=== PATIENT | female | born 1950 | race Caucasian/White ===

== ENCOUNTER → 2016-07-27 | Outpatient (CLI) | payer BC ==
[2016-07-27 07:29] LABS: LYMPHOCYTES % (AUTO) 37.9 % (10-50)
[2016-07-27 07:32] LABS: BASOPHILS # (AUTO) 0.07 10*3/UL; BASOPHILS % (AUTO) 0.9 % (0-1); EOSINOPHILS % (AUTO) 0.7 % (0-8); HEMATOCRIT 45.8 % (37.0-47.0); HEMOGLOBIN 15.5 g/dL (12.0-16.0); IMM GRAN % (AUTO) 0.2 % (0-5); IMM GRAN# (AUTO) 0.02 10*3/UL; LYMPHOCYTES # (AUTO) 3.07 10*3/uL; MEAN CORPUSCULAR HEMOGLOBIN 28.9 PG (27-31); MEAN CORPUSCULAR HGB CONC 33.8 g/dL (33-37); MEAN PLATELET VOLUME 11.1 FL (7.4-12.2); MONOCYTES # (AUTO) 0.39 10*3/UL (0.3-0.8); MONOCYTES % (AUTO) 4.8 % (5-15); NEUTROPHILS # (AUTO) 4.49 10*3/UL; NEUTROPHILS % (AUTO) 55.5 % (50-80); RDW COEFFICIENT OF VARIATION 13.6 % (11.5-14.5); RED BLOOD COUNT 5.36 10^6/uL (4.20-5.40)
[2016-07-27 07:34] LABS: PLATELET MORPHOLOGY COMMENT NORMAL MORPHOLOGY (NORM)
[2016-07-27 07:44] LABS: HEMOGLOBIN A1C 5.85 % (4.2-6.0); MEAN BLOOD GLUCOSE (CALC) 108.805 mg/dL
[2016-07-27 08:24] LABS: FREE T4 (FREE THYROXINE) 1.22 ng/dL (0.93-1.71)
[2016-07-27 08:29] LABS: ERYTHROCYTE SEDIMENTATION RATE 7 MM/HR (0-20)
[2016-07-27 08:54] LABS: BLOOD UREA NITROGEN 17 mg/dL (7-22); BUN/CREATININE RATIO 18.88 (6-20); CALCIUM 9.8 mg/dL (8.7-10.7); CHLORIDE 102 meq/L (98-112); CREATININE 0.9 mg/dL (0.50-1.20); EST GLOMERULAR FILTRATION > 60 (>60 ml/min/1.73m(2)); GLUCOSE 109 mg/dL (78-110); HDL CHOLESTEROL 37 mg/dL (40-150); POTASSIUM 4.4 meq/L (3.8-5.2); SODIUM 139 meq/L (135-145); TRIGLYCERIDES 230 mg/dL (44-200)
== END ==
LOC: LAB 07:08
PROVIDERS: ATTEND Internal Medicine
DX: E11.9 Type 2 diabetes mellitus without complications (principal); E78.5 Hyperlipidemia, unspecified; L65.9 Nonscarring hair loss, unspecified; L85.3 Xerosis cutis; R22.1 Localized swelling, mass and lump, neck; R63.4 Abnormal weight loss
CPT/HCPCS: 36415; 80048; 80061; 83036; 84439; 84443; 85025; 85652

== ENCOUNTER → 2016-07-29 | Outpatient (CLI) | payer BC ==
--- NOTE | 2016-07-29 14:22 | DI ---
THYROID ULTRASOUND, 07/29/2016 10:33 AM Clinical History: Nodule of the neck. Previous Exam: None. Scans are performed through both lobes of the thyroid gland in multiple projections with the high res olution linear array probe. Color Doppler ultrasound is also performed. Both lobes of the thyroid gland are of normal size. The right and left lobes measure 12 x 12 x 48 mm, and 12 x 10 x 42 mm, in the AP, transverse, and longitudinal dimensions, respectively. At the inferi or margin of the right lobe of the thyroid gland and extending obliquely into the isthmus a solid nod ule is identified. It is inhomogeneous and internally hypovascular, but the perimeter of the lesion h as numerous vessels surrounding the lesion. The lesion measures approximately 12 x 17 x 19 mm. Bilate rally, there are small hyperplastic nodules in the range of 2-3 mm in diameter as well as multiple si milar sized hypoechoic lesions that are consistent with benign follicular type cysts. Readin. There is an inhomogeneous slightly hypoechoic 12 x 17 x 19 mm solid lesion that extends from the lower pole of the right lobe of thyroid gland and then courses medially into the right side of the is thmus. Surgical consultation with fine needle aspiration is recommended for further evaluation. 2. The left thyroid lobe and left side of the isthmus are normal. 3. Both lobes have multiple small hyperplastic nodules as well as small benign follicular cysts.
== END ==
LOC: US 10:30
PROVIDERS: ATTEND Internal Medicine
DX: R22.1 Localized swelling, mass and lump, neck (principal)
CPT/HCPCS: 76536

== ENCOUNTER → 2016-08-17 | Outpatient (CLI) | payer BC ==
--- NOTE | 2016-08-17 12:09 | DI ---
US FINE NDL ASP W/IMAGING GUID,08/17/2016 7:53 AM: Clinical History: Thyroid nodule. Previous Exam: July 29, 2016 Procedure: Risks, benefits and alternatives were explained to the patient and informed written consen t obtained. The anterior neck was prepped and draped in usual sterile fashion and 1% lidocaine used for local ane sthesia. Under sonographic guidance, 2 total passes were made through the thyroid mass within the isthmus. Images obtained after the procedure demonstrate no evidence of hematoma. The patient tolerated the procedure well and was sent home in good condition. Findings: 2 images are obtained during both thyroid biopsies. Impression: Successful thyroid biopsy. Pathology pending.
== END ==
LOC: US 07:50
PROVIDERS: ATTEND Surgery
DX: R22.1 Localized swelling, mass and lump, neck (principal)
CPT/HCPCS: 10022

== ENCOUNTER 2017-04-20 07:46 | Inpatient (IN) ==
[2017-04-20] MEDS ORDERED: Sodium Chloride 0.9% 1,000 ML PRIMARY IV ONE (08:12)
[2017-04-20] MEDS ORDERED: NORMAL SALINE 10 ML SYRINGE FLUSH IVP PRN ×2 (08:12→10:38)
[2017-04-20] MEDS ORDERED: IPRATROPIUM/ALBUTEROL SULFATE 3 ML NEB NEB ONE (08:12)
[2017-04-20 08:31] LABS: BILIRUBIN,URINE NEGATIVE (NEG); CLARITY,URINE CLEAR (CLEAR); COLOR,URINE YELLOW (Y); GLUCOSE, URINE (UA) NEGATIVE (NEG); NITRATE,URINE NEGATIVE (NEG); OCCULT BLOOD,URINE Trace-intact (NEG); PROTEIN,URINE NEGATIVE (NEG); UROBILINOGEN,URINE 0.2 EU/dL (0.2)
[2017-04-20 08:33] LABS: RBC,URINE 0 /hpf; SQUAMOUS EPITHELIAL CELL,UR RARE; URINE SAMPLE TYPE CATH SPECIMEN; WBC,URINE 0
[2017-04-20 08:38] LABS: VENOUS PH 7.48 (7.32-7.42)
[2017-04-20 08:42] LABS: BLOOD UREA NITROGEN 20 mg/dL (7-22); MAGNESIUM 1.3 mg/dL (1.6-2.4); SERUM ALBUMIN 4.1 g/dL (3.5-4.8)
[2017-04-20 08:45] LABS: BASOPHILS % (AUTO) 0.2 % (0-1); EOSINOPHILS # (AUTO) 0.01 10*3/UL; EOSINOPHILS % (AUTO) 0.1 % (0-8); Hematocrit [HCT] 43.3 % (37.0-47.0); Hemoglobin [HGB] 14.5 g/dL (12.0-16.0); LYMPHOCYTES # (AUTO) 1.42 10*3/uL; MEAN CORPUSCULAR HEMOGLOBIN 27.9 PG (27-31); MEAN CORPUSCULAR HGB CONC 33.5 g/dL (33-37); MEAN CORPUSCULAR VOLUME 83.4 FL (81-99); MEAN PLATELET VOLUME 10.5 FL (7.4-12.2); MONOCYTES % (AUTO) 5.2 % (5-15); NEUTROPHILS # (AUTO) 12.96 10*3/UL; NEUTROPHILS % (AUTO) 84.9 % (50-80); RED BLOOD COUNT 5.19 10^6/uL (4.20-5.40)
[2017-04-20 08:46] LABS: BASOPHILS # (AUTO) 0.03 10*3/UL; PLATELET MORPHOLOGY COMMENT NORMAL MORPHOLOGY (NORM); RBC MORPHOLOGY COMMENT NORMAL MORPHOLOGY (NORM); WBC MORPHOLOGY COMMENT NORMAL MORPHOLOGY (NORM)
[2017-04-20] MEDS ORDERED: Ertapenem Inj 1 GM in Sodium Chloride 0.9% 100 ML IV ONE (09:01)
[2017-04-20] MEDS ORDERED: ACETAMINOPHEN 500 MG TABLET PO ONE (09:02)
--- NOTE | 2017-04-20 09:14 | PDOC ---
General Adult HPI - General Chief Complaint: Dyspnea Stated Complaint: ill, dyspnea Date Seen by Provider: 04/20/17 Time Seen by Provider: 07:50 Source: POSITIVE: Patient, Old records Exam Limitations: POSITIVE: No limitations Nurse's Notes Reviewed & Considered: Yes - History of Present Illness Initial Comment: The patient is a 66-year-old female. She presents to the emergency room complaining of a two-week history of cough. She was seen in the emergency room on April 15 for this complaint; at that time chest x-ray was normal. Please refer to previously dictated emergency room note. She has a history of COPD. Patient was treated with beta agonist nebulizers and was started on Levaquin, 500 mg daily. She returns to the emergency room today complaining of persistent cough and for the last day or so she's had a fever and chills. She states she feels more short of breath. She states she has a history of congestive heart failure. Have you received a tetanus shot in the past 10 years?: Yes Body Location Affected: REPORTS: Chest Timing: REPORTS: Gradual, Getting Worse Duration: >1 week Severity: Moderate Quality: REPORTS: Other (No pain except some circumferential headache) Context: REPORTS: Coughing Modifying Factors: improves with: Coughing Similar Symptoms Previously: Yes Recent Care Received: REPORTS: Recently Seen, Treated by MD (As above) Any Prior Injuries Related to Current Complaint?: No - Patient Home Medications Home Medications: Home Medications Aspirin 81 mg PO DAILY tab 02/17/15 Cholecalciferol (Vitamin D3) [Vitamin D-3] 1 tab PO DAILY tab 02/17/15 Cinnamon Bark [Cinnamon] 500 mg PO BID #0 cap 01/28/16 buspirone 15 mg tablet 15 mg PO BID #0 tab 02/21/17 trazodone 100 mg tablet 100 mg PO QHS #135 tab 02/21/17 omeprazole 20 mg capsule,delayed release 20 mg PO BID #180 cap 03/11/17 Albuterol Neb Soln 0.083% 2.5 mg IH Q4H PRN #25 ml 04/15/17 Levofloxacin [Levaquin] 500 mg PO DAILY #14 tab 04/15/17 - Patient Allergies Allergies/Adverse Reactions: Allergies 3 Allergy/AdvReac Type Severity Reaction Status Date / Time red dye [Red Dye] Allergy Severe SWELLING Verified 04/20/17 07:50 OF TONGUE [id number]-[id number] Reductase AdvReac MUSCLE Verified 04/20/17 07:50 Inhibitor ACHES GENERIC PROZAC AdvReac UNSURE Uncoded 04/20/17 07:50 Past Medical History - heen HEENT History: Denies History Cardiovascular History: Hypertension, CAD, Hyperlipidemia Respiratory History: COPD, Home Oxygen Use Gastrointestinal History: Denies History Genitourinary History: Denies History Endocrine History: Other (please comment) Additional Endocrine History: HX TYPE II DIABETES, SYMPTOMS SUBSIDED WITH WEIGHT LOSS Musculoskeletal History: Denies History Prosthesis or Implant: No Neurological History: Denies History Blood Disorders: Denies History Psychiatric History: Depression History of Sexually Transmitted Diseases: No Female Reproductive History: Hysterectomy Cancer History: Denies History In Past Year Been Physically Harmed or Verbally Threatened: No History of MDRO: No History of Other Communicable Diseases: No Tobacco Use: Former Smoker Alcohol Use: None In the Past 12 Months, Have Used or Abuse Any Substance: None Previous Surgical History: Yes Type / Date of Surgery: PARTIAL HYSTERECTOMY. THYROID BIOPSY Anesthesia Reactions: No Malignant Hyperthermia: No Significant Family History: No pertinent family hx Past Medical History Reviewed: Reviewed - No Changes ROS - Limitations ROS Limitations: No Limitations Constitution: REPORTS: Chills, Fever Cardiovascular: REPORTS: Denies Cardiac Symptoms Respiratory: REPORTS: Cough Productive (Of mucoid sputum), Shortness Of Breath Neurological: REPORTS: Denies Neuro Symptoms Gastrointestinal: REPORTS: Denies GI Symptoms Endocrine: REPORTS: Denies Symptoms Musculoskeletal: REPORTS: Muscle Aches Genitourinary: REPORTS: Denies Symptoms Eyes: REPORTS: Denies Symptoms ENT: REPORTS: Denies Symptoms Skin: REPORTS: Denies Skin Symptoms Lympathic: REPORTS: Denies Lympathic Symptoms Immunologic: POSITIVE: Denies Symptoms Psychiatric: POSITIVE: Denies Psych Symptoms General Adult Exam - General Appearance General Appearance: POSITIVE: Alert, Cooperative, No Acute Distress, No Evidence of Trauma - HEENT HEENT: POSITIVE: Head Inspection Nml, Eyes Inspection Nml, Ears Inspection Nml, Nose Inspection Nml, Oral/Dental Inspect. Nml, Pharynx Inspect. Nml, PERRL, EOMI - Pupils Pupil Size: 3 mm: Bilateral (PERRLA) - Neck Neck: POSITIVE: Normal Inspection, Thyroid Normal - Respiratory Respiratory: POSITIVE: No Respiratory Distress, Rhonchi (Scattered rhonchi). NEGATIVE: Breath Sounds Normal - Cardiovascular Cardiovascular: POSITIVE: Regular Rate & Rhythm, No Murmur, No Gallop, PMI Normal Peripheral Pulses: Radial (R): 2+, Radial (L): 2+ - Abdomen Abdomen: Soft: (All Quadrants), Normal Bowel Sounds: (All Quadrants), Denies Tenderness: (All Quadrants), No Splenomegaly: (All Quadrants), No Hepatomegaly: (All Quadrants), No Guarding: (All Quadrants), No Rebound: (All Quadrants), No Palpable Pulse: (All Quadrants), No Palpabale Mass: (All Quadrants), No Distention: (All Quadrants), No Rigidity: (All Quadrants) - Back Back: POSITIVE: Normal Inspection - Skin Skin: POSITIVE: Normal Color, Warm, Dry, No Rash - Extremities Extremity: Non-Tender: (All Extremities), Normal ROM: (All Extremities), Normal Inspection: (All Extremities) - Neurological / Psychological Neurological: POSITIVE: Oriented X3, game producer Normal As Tested, Motor Normal, Sensation Normal, 5, 6 General Adult Progress - Results Reviewed by me Xrays/CTs/US Reviewed by me: Yes Discussed with Radiologist: No Radiology Findings: No definite infiltrates or other abnormalities seen by me; radiologist interpretation pending Lab Results Reviewed by Me: Yes (urinalysis normal, lactate 0.8, VBG normal, blood cultures drawn) CBC and BMP: 04/20/17 08:26 04/20/17 08:26 - Patient's Progress Pain Medication Addressed: POSITIVE: Yes (Tylenol given for fever and myalgia) School/Work Release Addressed: POSITIVE: Not Applicable Re-Examine Time: 09:00 Re-Examine Comment: Condition unchanged. Patient maintains saturations around 94% on 4 L. 1 g of Invanz given after blood cultures drawn. Case discussed with hospitalist information systems audit manager and patient admitted to Dr. Gunn. Status: POSITIVE: Unchanged, Re-Examined Antibiotics Given: Yes (Invanz, 1 g IV) Quality Measure Initiative: CAP: POSITIVE: SaO2, VS, Antibiotic(s), BC, CXR or CT - Consult Consult (If Yes, Name of Consulting MD & Time Called): Yes (Dr. Gunn, hospitalist, [id number]) Consulting MD will see pt:: POSITIVE: [facility] [place] Admit Counseled: POSITIVE: Patient, Family, RE: Lab Results, RE: Radiology Results, RE : DX, RE: Need for F/U Patient Care Time - Estimated PCT Patient Care Time (In Minutes): 50 Vital Signs - Recent Vital Signs Vital Signs: Vital Signs (Last 8 hours) Temp Pulse Pulse Resp BP Pulse Ox 04/20/17 08:31 110 H 22 100 04/20/17 08:30 112 H 24 95 04/20/17 08:01 101.1 F H 136 H 20 125/85 88 - VS Reviewed Vital Signs Reviewed: Yes Discharge Clinical Impression: Chronic obstructive lung disease, Cough, COPD exacerbation, Fever and chills Discharge Disposition: Admit to Inpatient Condition: Fair Follow Up With: GREGORY FLORES [Primary Care Provider] - Date Decision to Admit to Inpatient: 04/20/17 Time Decision to Admit to Inpatient: 08:50
--- NOTE | 2017-04-20 09:36 | DI ---
PA /LATERAL CHEST X-RAY, 04/20/2017 8:12 AM : Clinical History: Cough and fever Previous Exam: April 15, 2017 There is no acute soft tissue or bony abnormality. Heart size is normal. Lungs are clear. Mediastinal structures are normal. There are no pulmonary nodules. IMPRESSION: Normal chest x-ray.
[2017-04-20] MEDS ORDERED: PNEUMOCOCCAL 23 VACCINE 25 MCG/0.5 ML VIAL IM ONE (10:15)
[2017-04-20] MEDS ORDERED: LIDOCAINE W/ SODIUM BICARB 0.5 ML SYR SUBD PRN (10:38)
--- NOTE | 2017-04-20 11:01 | PDOC ---
HPI - History of Present Illness Date of Service: 04/20/17 Time of Service: 11:40 Chief Complaint: Cough, fever, shortness of breath History of Present Illness: This is a 66 years old female with medical history significant for history of COPD started on oxygen few days ago, history of hypertension on no medication, history of diabetes on no medication and history of sleep apnea who is been feeling sick she said for the last 3 weeks started with cough and runny nose not feeling well and then felt some improvement however on the she felt worse so she came into the ER on Tuesday the and she was given antibiotics and nebulizer and discharged home. Over the weekend she continued to feel not well, feeling cold, decreased appetite, shortness of breath cough with phlegm production described as yellow and because of all the symptoms she came into the ER. When she came into the ER she was tachycardic, febrile at 101 white count was elevated she was given antibiotic after blood culture and was admitted. She is feeling as slightly better than when she came in but she still feel tired Past Medical History Medical History: 1. COPD no oxygen until last Tuesday when she was told to be on oxygen she been on 2 L a minute. 2. GERD. 3. History of hypertension on no medication but since she lost weight she doesn't need blood pressure medications. 4. Sleep apnea. 5. History of leaky valve, echo done in 2012 showed aortic regurgitation. 6. Diabetes on no medications. 7. Anxiety depression. 8. Hyperlipidemia on no medications Surgical History: 1. Hysterectomy Pertinent Family History: Mother had coronary artery disease. Father had coronary artery disease Tobacco Use: Former Smoker In the Past 12 Months, Have Used or Abuse Any of the Following Substance: None Alcohol Use: Rarely Medication / Allergies Home Medications: Home Medications Medication Instructions Recorded Confirmed Type Aspirin 81 mg PO DAILY tab 02/17/15 04/20/17 History Cholecalciferol (Vitamin D3) 1 tab PO DAILY tab 02/17/15 04/20/17 History [Vitamin D-3] Cinnamon Bark [Cinnamon] 500 mg PO BID #0 cap 01/28/16 04/20/17 Rx buspirone 15 mg tablet 15 mg PO BID #0 tab 02/21/17 04/20/17 History trazodone 100 mg tablet 100 mg PO QHS #135 tab 02/21/17 04/20/17 History omeprazole 20 mg capsule,delayed 20 mg PO BID #180 cap 03/11/17 04/20/17 Rx release Albuterol Neb Soln 0.083% 2.5 mg IH Q4H PRN #25 ml 04/15/17 04/20/17 Rx Levofloxacin [Levaquin] 500 mg PO DAILY #14 tab 04/15/17 04/20/17 Rx Allergies/Adverse Reactions: Allergies 3 Allergy/AdvReac Type Severity Reaction Status Date / Time red dye [Red Dye] Allergy Severe SWELLING Verified 04/20/17 07:50 OF TONGUE Yldyswn-Axu-Pgk Reductase AdvReac MUSCLE Verified 04/20/17 07:50 Inhibitor ACHES GENERIC PROZAC AdvReac UNSURE Uncoded 04/20/17 07:50 Review of Systems - Review of Systems All Systems: Reviewed & No Additional Complaints Except as Stated Exam - Vitals Vital Signs: Vital Signs Temperature 99.8 F Temperature Source Oral Pulse Rate [Apical] 101 Pulse Rate 112 Respiratory Rate 20 Blood Pressure 141/63 Pulse Ox 93 Oxygen Flow Rate 2 Oxygen Delivery Method Nasal Cannula Height 5 ft 3 in Weight 203 lb 9.6 oz - General General Appearance: Cooperative, Obese Additional General Exam Details: Looks tired - Head Head Exam: Normal Inspection, Atraumatic - Eye Eye Exam: POSITIVE: Normal Appearance - ENT ENT Exam: POSITIVE: Normal Exam - Respiratory Additional Respiratory Exam Details: Decreased air entry otherwise clear - Cardiovascular Cardiovascular Exam: POSITIVE: RRR, Systolic Murmur - GI/Abdominal GI/Abdominal Exam: POSITIVE: Normal Bowel Sounds, Non Tender, Non Distended, Soft, No Organomegaly - Rectal Rectal Exam: POSITIVE: Deferred - External Exam: POSITIVE: Deferred - Extremities Extremities Exam: POSITIVE: Normal Inspection - Back Back Exam: POSITIVE: Normal Inspection - Neurological Neurological Exam: POSITIVE: Alert, Oriented x 3, CN II-XII Intact, Speech Intact / Clear, Moves All Extremities Equally - Psychiatric Psychiatric Exam: POSITIVE: Normal Affect Results - Labs CBC and BMP: 04/20/17 08:26 04/20/17 08:26 Assessment and Plan - Patient Problems (1) Sepsis Current Visit: Yes Status: Acute Comment: The fever, elevated white count and tachycardia that she had when she came in point to sepsis. The site of infection is likely the lungs. The chest x-ray that she had was negative so will do a CT of the chest to look for pneumonia. I think will treat with antibiotics for now until we have culture result. Tests for flu were negative. contineu IV fluids. Code(s): A41.9 - Sepsis, unspecified organism (2) Anxiety Current Visit: Yes Status: Acute Comment: Same medications Code(s): F41.9 - Anxiety disorder, unspecified (3) GERD (gastroesophageal reflux disease) Current Visit: No Status: Chronic Onset Date: 01/28/12 Comment: Same med Code(s): K21.9 - Gastro-esophageal reflux disease without esophagitis (4) DVT prophylaxis Current Visit: Yes Status: Acute Comment: will put her on lovenox
[2017-04-20] MEDS ORDERED: Magnesium Sulfate 2gm (Premix) 2 GM/50 ML BAG IV ONE (11:02)
[2017-04-20] MEDS ORDERED: cefTRIAXone Inj 2 GM in Sodium Chloride 0.9% 100 ML IV SCH (12:00)
[2017-04-20] MEDS: Sodium Chloride 0.9% 1,000 ML IV SCH ×3 (12:59→23:24)
[2017-04-20] MEDS: IPRATROPIUM/ALBUTEROL SULFATE 3 ML NEB NEB SCH ×2 (13:20→19:10)
[2017-04-20] MEDS: cefTRIAXone Inj 2 GM in Sodium Chloride 0.9% 100 ML IV SCH (15:08)
[2017-04-20] MEDS ORDERED: Sodium Chloride 0.9% 1,000 ML ONE (15:49)
--- NOTE | 2017-04-20 16:34 | DI ---
CT Chest WO Contrast,04/20/2017 10:46 AM: Clinical History: Cough and fever Previous Exam: September 16, 2008 Findings: Multiple helically acquired CT images are obtained through the lungs without contrast, and demonstrat e early infiltrates throughout and alveolar distribution worse on the right than the left. The larges t infiltrate is within the right upper lobe just above the right major fissure. Coronary artery calcifications are also noted. There is no lymphadenopathy. The upper abdomen is unremarkable. Impression: Early bilateral infiltrates most consistent with early pneumonia. Recommend followup imaging after tr eatment to document resolution as a neoplastic process cannot be completely excluded.
[2017-04-20] MEDS: ACETAMINOPHEN 325 MG TABLET PO PRN (16:43)
[2017-04-20] MEDS: traZODone Tab 50 MG TAB PO SCH (20:44)
[2017-04-20] MEDS: OMEPRAZOLE 20 MG CAPSULE PO SCH (20:44)
[2017-04-20] MEDS: busPIRone HCL 5 MG TABLET PO SCH (20:44)
[2017-04-21] MEDS: IPRATROPIUM/ALBUTEROL SULFATE 3 ML NEB NEB SCH ×4 (00:03→18:08)
[2017-04-21] MEDS: Sodium Chloride 0.9% 1,000 ML IV SCH ×3 (03:14→16:34)
[2017-04-21 07:35] LABS: Hematocrit [HCT] 36.6 % (37.0-47.0); Hemoglobin [HGB] 12.3 g/dL (12.0-16.0); MEAN CORPUSCULAR HEMOGLOBIN 29.1 PG (27-31); MEAN CORPUSCULAR VOLUME 87 FL (81-99); RED BLOOD COUNT 4.21 10^6/uL (4.20-5.40)
[2017-04-21 07:36] LABS: BASOPHILS % (AUTO) 0.4 % (0-1); MEAN CORPUSCULAR HGB CONC 33.5 g/dL (33-37); MEAN PLATELET VOLUME 8.4 FL (7.4-12.2); NEUTROPHILS # (AUTO) 8.46 10*3/UL; NEUTROPHILS % (AUTO) 71.6 % (50-80)
[2017-04-21 07:37] LABS: BASOPHILS # (AUTO) 0.05 10*3/UL; EOSINOPHILS # (AUTO) 0.12 10*3/UL; MONOCYTES # (AUTO) 0.59 10*3/UL (0.3-0.8); PLATELET MORPHOLOGY COMMENT NORMAL MORPHOLOGY (NORM); RBC MORPHOLOGY COMMENT NORMAL MORPHOLOGY (NORM); WBC MORPHOLOGY COMMENT NORMAL MORPHOLOGY (NORM)
--- NOTE | 2017-04-21 08:01 | PDOC(PROG) ---
Date and Time of Service: 04/21/2017 at 7:58 AM Interval History: Subjective Patient feels a little bit better compared to yesterday. Her breathing is somewhat better. Still coughing but nothing is coming out. No other symptoms. Objective : Data - Labs CBC and BMP: 04/21/17 07:00 04/20/17 08:26 Objective : Exam - General General Appearance: No Acute Distress, Cooperative - Head Head Exam: Normal Inspection - Eye Eye Exam: Normal Appearance - ENT ENT Exam: Normal Exam - Neck Neck Exam: Normal Inspection - Respiratory Additional Respiratory Exam Details: Decreased air entry otherwise clear - Cardiovascular Cardiovascular Exam: RRR, Systolic Murmur - GI/Abdominal GI/Abdominal Exam: Normal Bowel Sounds, Non Tender, Non Distended, Soft - Rectal Rectal Exam: Deferred - External Exam: Deferred Exam: Deferred - Extremities Extremities Exam: Normal Inspection - Back Back Exam: Normal Inspection - Neurological Neurological Exam: Alert, Oriented x 3, CN II-XII Intact, Speech Intact / Clear , Moves All Extremities Equally - Psychiatric Psychiatric Exam: Normal Affect - Integumentary Integumentary Exam: Normal Color Assessment and Plan - Patient Problems (1) Sepsis Current Visit: Yes Status: Acute Comment: Sepsis secondary to pneumonia seems to be resolving. The CAT scan did show evidence of early pneumonia. I think we'll continue current antibiotic with the Rocephin and Zithromax. Her temperature seemed to be normalized. Her heart rate is within the normal range now. We'll cut back on her fluid. Need to stay at least another night in the hospital Code(s): A41.9 - Sepsis, unspecified organism (2) Anxiety Current Visit: Yes Status: Acute Comment: Same medications Code(s): F41.9 - Anxiety disorder, unspecified (3) GERD (gastroesophageal reflux disease) Current Visit: No Status: Chronic Onset Date: 01/28/12 Comment: Same med Code(s): K21.9 - Gastro-esophageal reflux disease without esophagitis (4) DVT prophylaxis Current Visit: Yes Status: Acute Comment: She is on Lovenox (5) Pneumonia Current Visit: Yes Status: Acute Comment: CAT scan did show evidence of early pneumonia continue current antibiotics. Code(s): J18.9 - Pneumonia, unspecified organism
[2017-04-21] MEDS: ASPIRIN 81 MG (BABY) CHEWABLE TABLET PO SCH (08:33)
[2017-04-21] MEDS: OMEPRAZOLE 20 MG CAPSULE PO SCH ×2 (08:33→20:18)
[2017-04-21] MEDS: busPIRone HCL 5 MG TABLET PO SCH ×2 (08:34→20:18)
[2017-04-21] MEDS: ENOXAPARIN SODIUM 40 MG/0.4 ML SYRINGE SUBCUT SCH (08:34)
[2017-04-21] MEDS: CHOLECALCIFEROL 1000 IU TABLET PO SCH (08:34)
[2017-04-21] MEDS: ACETAMINOPHEN 325 MG TABLET PO PRN (13:21)
[2017-04-21] MEDS: cefTRIAXone Inj 2 GM in Sodium Chloride 0.9% 100 ML IV SCH (16:33)
[2017-04-21] MEDS: traZODone Tab 50 MG TAB PO SCH (20:18)
[2017-04-22] MEDS: IPRATROPIUM/ALBUTEROL SULFATE 3 ML NEB NEB SCH ×4 (00:57→18:46)
[2017-04-22] MEDS: ACETAMINOPHEN 325 MG TABLET PO PRN ×2 (04:26→18:10)
[2017-04-22] MEDS: Sodium Chloride 0.9% 1,000 ML IV SCH (04:29)
[2017-04-22 06:30] LABS: Hematocrit [HCT] 36.2 % (37.0-47.0); Hemoglobin [HGB] 12.2 g/dL (12.0-16.0); MEAN CORPUSCULAR HEMOGLOBIN 29.3 PG (27-31); MEAN CORPUSCULAR HGB CONC 33.8 g/dL (33-37); MEAN CORPUSCULAR VOLUME 87 FL (81-99); RED BLOOD COUNT 4.17 10^6/uL (4.20-5.40)
[2017-04-22 06:31] LABS: BASOPHILS # (AUTO) 0.04 10*3/UL; BASOPHILS % (AUTO) 0.5 % (0-1); EOSINOPHILS # (AUTO) 0.17 10*3/UL; EOSINOPHILS % (AUTO) 2.2 % (0-8); LYMPHOCYTES # (AUTO) 1.91 10*3/uL; MEAN PLATELET VOLUME 8.2 FL (7.4-12.2); MONOCYTES # (AUTO) 0.48 10*3/UL (0.3-0.8); MONOCYTES % (AUTO) 6.1 % (5-15); NEUTROPHILS % (AUTO) 66.7 % (50-80); PLATELET MORPHOLOGY COMMENT NORMAL MORPHOLOGY (NORM); RBC MORPHOLOGY COMMENT NORMAL MORPHOLOGY (NORM); WBC MORPHOLOGY COMMENT NORMAL MORPHOLOGY (NORM)
[2017-04-22 06:41] LABS: BLOOD UREA NITROGEN 11 mg/dL (7-22); BUN/CREATININE RATIO 15.71 (6-20); MAGNESIUM 1.5 mg/dL (1.6-2.4); SERUM ALBUMIN 3.1 g/dL (3.5-4.8)
--- NOTE | 2017-04-22 07:59 | PDOC(PROG) ---
Date and Time of Service: 04/22/2017 7:55 AM Interval History: Subjective She still not feeling well she said. Although there is some improvement still compared to when she came in. She reports some pain in the chest in a small area when she takes a deep breath. its Located on the left side. More the upper left side. Objective : Data - Labs CBC and BMP: 04/22/17 06:18 04/22/17 06:18 Objective : Exam - General General Appearance: No Acute Distress, Cooperative - Head Head Exam: Normal Inspection - Eye Eye Exam: Normal Appearance - ENT ENT Exam: Normal Exam - Neck Neck Exam: Normal Inspection - Respiratory Additional Respiratory Exam Details: Decreased air entry minimal wheeze heard. - Cardiovascular Cardiovascular Exam: RRR - GI/Abdominal GI/Abdominal Exam: Normal Bowel Sounds, Non Tender, Non Distended, Soft, No Organomegaly - Rectal Rectal Exam: Deferred - External Exam: Deferred - Extremities Extremities Exam: Normal Inspection - Back Back Exam: Normal Inspection, Full ROM - Neurological Neurological Exam: Alert, Oriented x 3, CN II-XII Intact, Speech Intact / Clear , Moves All Extremities Equally - Psychiatric Psychiatric Exam: Normal Affect - Integumentary Integumentary Exam: Normal Color Assessment and Plan - Patient Problems (1) Sepsis Current Visit: Yes Status: Acute Comment: This is resolved this is secondary to the pneumonia. Continue antibiotics. Code(s): A41.9 - Sepsis, unspecified organism (2) Anxiety Current Visit: Yes Status: Acute Comment: Same med Code(s): F41.9 - Anxiety disorder, unspecified (3) GERD (gastroesophageal reflux disease) Current Visit: No Status: Chronic Onset Date: 01/28/12 Comment: Continue omeprazole Code(s): K21.9 - Gastro-esophageal reflux disease without esophagitis (4) DVT prophylaxis Current Visit: Yes Status: Acute Comment: She is on Lovenox (5) Pneumonia Current Visit: Yes Status: Acute Comment: Continue current antibiotics she is still not feeling well. There is minimal wheeze I think I'll add some steroid as she has COPD and see whether that would help her symptoms. The pain that she has in the chest does not look her anginal but will do it an EKG. Will check also troponin. Code(s): J18.9 - Pneumonia, unspecified organism
--- NOTE | 2017-04-22 08:08 | EKG ---
[address] [address] Measurements Intervals [place] Rate: 75 P: 76 NV: 192 QRS: 34 QRSD: 84 T: 52 QT: 372 QTc: 401 Interpretive Statements SINUS RHYTHM Compared to ECG 04/15/2017 12:37:48 No significant changes Electronically Signed On 04-22-17 08:33:53 MST by Lloyd Terry MD [email or web address]
[2017-04-22] MEDS ORDERED: Magnesium Sulfate 2gm (Premix) 2 GM/50 ML BAG IV ONE (08:09)
[2017-04-22] MEDS: predniSONE Tab 20 MG TAB PO SCH (08:32)
[2017-04-22] MEDS: CHOLECALCIFEROL 1000 IU TABLET PO SCH (08:32)
[2017-04-22] MEDS: OMEPRAZOLE 20 MG CAPSULE PO SCH ×2 (08:33→20:32)
[2017-04-22] MEDS: ENOXAPARIN SODIUM 40 MG/0.4 ML SYRINGE SUBCUT SCH (08:33)
[2017-04-22] MEDS: MAGNESIUM OXIDE 400 MG TABLET PO SCH (08:33)
[2017-04-22] MEDS: ASPIRIN 81 MG (BABY) CHEWABLE TABLET PO SCH (08:33)
[2017-04-22] MEDS: busPIRone HCL 5 MG TABLET PO SCH ×2 (08:33→20:33)
[2017-04-22] MEDS ORDERED: PNEUMOCOCCAL 23 VACCINE 25 MCG/0.5 ML VIAL IM ONE (14:00)
[2017-04-22] MEDS: cefTRIAXone Inj 2 GM in Sodium Chloride 0.9% 100 ML IV SCH (14:55)
[2017-04-22] MEDS: traZODone Tab 50 MG TAB PO SCH (20:33)
[2017-04-23] MEDS: IPRATROPIUM/ALBUTEROL SULFATE 3 ML NEB NEB SCH ×2 (00:49→06:14)
[2017-04-23 04:54] VITALS: TEMP 97.3
[2017-04-23 06:38] LABS: BLOOD UREA NITROGEN 14 mg/dL (7-22); MAGNESIUM 1.6 mg/dL (1.6-2.4)
[2017-04-23] MEDS: MAGNESIUM OXIDE 400 MG TABLET PO SCH (06:46)
[2017-04-23 08:02] VITALS: RESP 20
[2017-04-23] MEDS: ENOXAPARIN SODIUM 40 MG/0.4 ML SYRINGE SUBCUT SCH (08:16)
[2017-04-23] MEDS: OMEPRAZOLE 20 MG CAPSULE PO SCH (08:16)
[2017-04-23] MEDS: predniSONE Tab 20 MG TAB PO SCH (08:16)
[2017-04-23] MEDS: ASPIRIN 81 MG (BABY) CHEWABLE TABLET PO SCH (08:16)
[2017-04-23] MEDS: busPIRone HCL 5 MG TABLET PO SCH (08:16)
[2017-04-23] MEDS: CHOLECALCIFEROL 1000 IU TABLET PO SCH (08:17)
[2017-04-23 11:12] VITALS: BP 153/81; O2SAT 93
--- NOTE | 2017-04-23 11:17 | DCSUMMARY ---
Hospitalization Summary Hospital Course: Final Discharge Diagnosis: Current Visit Problems Problem Status Onset Code COPD exacerbation Acute J44.1 Chronic obstructive lung disease Acute J44.9 Cough Acute R05 Fever and chills Acute R50.9 Sepsis Acute A41.9 Anxiety Acute F41.9 DVT prophylaxis Acute Pneumonia Acute J18.9 Diagnostic Data, Laboratory Data, and Procedures of Signifigance: Laboratory Results 04/22/17 04/23/17 Range/Units 14:18 06:00 Sodium 142 (135-145) meq/L Potassium 3.9 (3.8-5.2) meq/L Chloride 107 (98-112) meq/L Carbon Dioxide 24 (23-33) meq/L Anion Gap 11 (5-20) BUN 14 (7-22) mg/dL Creatinine 0.7 (0.50-1.20) mg/dL Estimated GFR > 60 (>60 ml/min/1.73m(2)) BUN/Creatinine Ratio 20.00 (6-20) Glucose 83 (78-110) mg/dL Calculated Osmolality 293.0 H (267-292) mOsm/kg Calcium 9.3 (8.7-10.7) mg/dL Magnesium 1.6 (1.6-2.4) mg/dL Troponin I < 0.012 (< 0.040) ng/mL Vital Signs (24 hrs) Temp Pulse Pulse Resp BP BP Pulse Ox 04/23/17 11:10 97.3 F 65 20 153/81 93 04/23/17 11:09 94 04/23/17 11:00 93 04/23/17 08:01 97.3 F 73 20 133/72 92 04/23/17 07:00 92 04/23/17 06:15 60 16 04/23/17 06:14 60 16 95 04/23/17 04:53 97.3 F 72 18 134/70 93 04/23/17 04:42 90 04/23/17 02:54 92 04/23/17 00:54 97.5 F 67 20 121/64 93 04/23/17 00:50 61 16 96 04/23/17 00:49 56 L 16 96 04/22/17 22:38 93 04/22/17 21:00 95 04/22/17 20:52 97.7 F 65 20 128/66 94 04/22/17 19:00 76 76 H 90 04/22/17 18:47 57 L 18 98 04/22/17 18:46 55 L 18 98 04/22/17 16:12 97.4 F 71 16 128/60 94 04/22/17 15:00 95 04/22/17 12:29 75 16 04/22/17 12:28 75 16 95 04/22/17 11:57 97.9 F 74 16 147/81 93 tibiotic after blood culture and was admitted. She is feeling as slightly better than when she came in but she still feel tired Past Medical History Medical History: 1. COPD no oxygen until last Tuesday when she was told to be on oxygen she been on 2 L a minute. 2. GERD. 3. History of hypertension on no medication but since she lost weight she doesn't need blood pressure medications. 4. Sleep apnea. 5. History of leaky valve, echo done in 2012 showed aortic regurgitation. 6. Diabetes on no medications. 7. Anxiety depression. 8. Hyperlipidemia on no medications Surgical History: 1. Hysterectomy Pertinent Family History: Mother had coronary artery disease. Father had coronary artery disease Tobacco Use: Former Smoker Course of Hospitalization: This is a very nice 66-year-old female with past medical history significant for COPD, recently started on oxygen at home last Tuesday also has a history of sleep apnea and diabetes. Started having cough and runny nose for the last 3 weeks was seen in the ER was given a nebulizer and antibiotics and discharged home continued to feel shortness of breath with some phlegm and cough comes in admitted to the hospital for early pneumonia and COPD exacerbation. She was started on antibiotics and steroids patient improved throughout her hospital stay she was ambulated today and she is satting at 92% on room air after walking a few laps around the hospital course documented by respiratory therapy. Her labs look unremarkable she is not tachycardic no fever no oxygen requirements she will be discharged home in stable and improved condition continue 40 mg of prednisone for 5 more days prescription was called in and also continue 3 more days of Augmentin 875/125 twice a day. Patient agrees with the plan discussed with nursing as well On the date of discharge, the patient was examined: Gen.: No acute distress, alert, nontoxic Heart: Regular rate and rhythm, no murmurs, clicks, gallops, or rubs Lungs: Clear to auscultation bilaterally, breathing is nonlabored Abdomen/GI: Normal tones on auscultation, soft, nontender, nondistended Musculoskeletal/extremities: No clubbing, cyanosis, or edema Vitals reviewed and are listed below Vital Signs (24 hrs) Temp Pulse Pulse Resp BP BP Pulse Ox 04/23/17 11:10 97.3 F 65 20 153/81 93 04/23/17 11:09 94 04/23/17 11:00 93 04/23/17 08:01 97.3 F 73 20 133/72 92 04/23/17 07:00 92 04/23/17 06:15 60 16 04/23/17 06:14 60 16 95 04/23/17 04:53 97.3 F 72 18 134/70 93 04/23/17 04:42 90 04/23/17 02:54 92 04/23/17 00:54 97.5 F 67 20 121/64 93 04/23/17 00:50 61 16 96 04/23/17 00:49 56 L 16 96 04/22/17 22:38 93 04/22/17 21:00 95 04/22/17 20:52 97.7 F 65 20 128/66 94 04/22/17 19:00 76 76 H 90 04/22/17 18:47 57 L 18 98 04/22/17 18:46 55 L 18 98 04/22/17 16:12 97.4 F 71 16 128/60 94 04/22/17 15:00 95 04/22/17 12:29 75 16 04/22/17 12:28 75 16 95 04/22/17 11:57 97.9 F 74 16 147/81 93 Assessment and Plan: 1. As per discharge assessments above 2. Disposition: Home 3. Condition on discharge, stable and improved. 4. Diet: regular diet 5. Activities: resume normal activities 6. Follow-Up: 1. PCP follow-up with her regular primary care physician in 3-5 days she will make her own appointment since today it is Tuesday 2. 7. Medications at the Time of Discharge: Home Medications Medication Instructions Recorded Confirmed Type Aspirin 81 mg PO DAILY tab 02/17/15 04/20/17 History Cholecalciferol (Vitamin D3) 1 tab PO DAILY tab 02/17/15 04/20/17 History [Vitamin D3] Cinnamon Bark [Cinnamon] 500 mg PO BID #0 cap 01/28/16 04/20/17 Rx buspirone 15 mg tablet 15 mg PO BID #0 tab 02/21/17 04/20/17 History omeprazole 20 mg capsule,delayed 20 mg PO BID #180 cap 03/11/17 04/20/17 Rx release Albuterol Neb Soln 0.083% 2.5 mg IH Q4H PRN #25 ml 04/15/17 04/20/17 Rx Amoxicill/Clav 875/125mg 1 ea PO BID #6 tab 04/23/17 Rx [Augmentin 875/125mg] Magnesium Oxide [Mag-Ox] 400 mg PO C BK tab 04/23/17 Rx predniSONE Tab [Deltasone Tab] 40 mg PO DAILY #20 tab 04/23/17 Rx 3 Generic Name Dose Route Start Last Admin Trade Name Freq PRN Reason Stop Dose Admin Acetaminophen 650 mg 04/20/17 11:25 04/22/17 18:10 Tylenol PO 650 mg Q6H PRN Administration Pain Albuterol/Ipratropium 3 ml 04/20/17 13:00 04/23/17 06:14 Duoneb Neb Soln NEB 3 ml RTQ6H ANGELA Administration Aspirin 81 mg 04/21/17 09:00 04/23/17 08:16 Aspirin Chewable Tab PO 81 mg DAILY ANGELA Administration Buspirone HCl 15 mg 04/20/17 21:00 04/23/17 08:16 Buspirone Hcl PO 15 mg BID ANGELA Administration Cholecalciferol 2,000 iu 04/21/17 09:00 04/23/17 08:17 Vitamin D3 PO 2,000 iu DAILY ANGELA Administration Enoxaparin Sodium 40 mg 04/21/17 09:00 04/23/17 08:16 Lovenox Inj SUBCUT 40 mg DAILY ANGELA Administration Azithromycin 500 mg/ Sodium 250 mls @ 250 mls/hr 04/20/17 13:00 04/22/17 12: 23 Chloride IV 250 mls/hr Q24H ANGELA Administration Ceftriaxone Sodium 2 gm/ 100 mls @ 200 mls/hr 04/20/17 15:00 04/22/17 14:55 Sodium Chloride IV 200 mls/hr Q24H ANGELA Administration Lidocaine HCl 0.5 ml 04/20/17 10:38 Lidocaine Buffered Inj SUBD ONCE PRN IV Starts Magnesium Oxide 400 mg 04/22/17 07:59 04/23/17 06:46 Mag-Ox PO 400 mg C BK ANGELA Administration Omeprazole 20 mg 04/20/17 21:00 04/23/17 08:16 Prilosec PO 20 mg BID ANGELA Administration Prednisone 40 mg 04/22/17 09:00 04/23/17 08:16 Deltasone Tab PO 40 mg DAILY ANGELA Administration Sodium Chloride 5 - 20 ml 04/20/17 10:38 Saline Flush IVP BID PRN Flush Trazodone HCl 100 mg 04/20/17 21:00 04/22/17 20:33 Desyrel Tab PO 100 mg BEDTIME ANGELA Administration Active Medications Generic Name Dose Route Start Last Admin Trade Name Freq PRN Reason Stop Dose Admin Acetaminophen 650 mg 04/20/17 11:25 04/22/17 18:10 Tylenol PO 650 mg Q6H PRN Administration Pain Albuterol/Ipratropium 3 ml 04/20/17 13:00 04/23/17 06:14 Duoneb Neb Soln NEB 3 ml RTQ6H ANGELA Administration Aspirin 81 mg 04/21/17 09:00 04/23/17 08:16 Aspirin Chewable Tab PO 81 mg DAILY ANGELA Administration Buspirone HCl 15 mg 04/20/17 21:00 04/23/17 08:16 Buspirone Hcl PO 15 mg BID ANGELA Administration Cholecalciferol 2,000 iu 04/21/17 09:00 04/23/17 08:17 Vitamin D3 PO 2,000 iu DAILY ANGELA Administration Enoxaparin Sodium 40 mg 04/21/17 09:00 04/23/17 08:16 Lovenox Inj SUBCUT 40 mg DAILY ANGELA Administration Azithromycin 500 mg/ Sodium 250 mls @ 250 mls/hr 04/20/17 13:00 04/22/17 12: 23 Chloride IV 250 mls/hr Q24H ANGELA Administration Ceftriaxone Sodium 2 gm/ 100 mls @ 200 mls/hr 04/20/17 15:00 04/22/17 14:55 Sodium Chloride IV 200 mls/hr Q24H ANGELA Administration Lidocaine HCl 0.5 ml 04/20/17 10:38 Lidocaine Buffered Inj SUBD ONCE PRN IV Starts Magnesium Oxide 400 mg 04/22/17 07:59 04/23/17 06:46 Mag-Ox PO 400 mg C BK ANGELA Administration Omeprazole 20 mg 04/20/17 21:00 04/23/17 08:16 Prilosec PO 20 mg BID ANGELA Administration Prednisone 40 mg 04/22/17 09:00 04/23/17 08:16 Deltasone Tab PO 40 mg DAILY ANGELA Administration Sodium Chloride 5 - 20 ml 04/20/17 10:38 Saline Flush IVP BID PRN Flush Trazodone HCl 100 mg 04/20/17 21:00 04/22/17 20:33 Desyrel Tab PO 100 mg BEDTIME ANGELA Administration 8. Time, care, counseling and coordination of care for this discharge is greater than 30 minutes. Exam - Vitals Vital Signs: Vital Signs Temperature 97.3 F Temperature Source Temporal Artery Scan Pulse Rate [Apical] 101 Pulse Rate [Pulse Oximeter 65 Right] Pulse Rate 60 Respiratory Rate 20 Blood Pressure [Right Arm] 153/81 Blood Pressure [Left Arm] 121/64 Blood Pressure 141/63 Pulse Ox 93 Oxygen Flow Rate 1 Oxygen Delivery Method Room Air Height 5 ft 3 in Weight 206 lb 6.4 oz
== END 2017-04-23 12:05 | disposition home or self-care (01) | DRG 190 ==
LOC: ER 07:46 → MED/SURG 09:10
PROVIDERS: ADMIT Internal Medicine; ATTEND Internal Medicine